=== PATIENT | male | born 1985 | race Caucasian/White ===

== ENCOUNTER 2023-02-11 16:14 | Emergency (ER) | payer BC, MEDICAID, SELFPAY ==
[2023-02-11 16:22] VITALS: BP 161/102; PULSE 84; RESP 16; TEMP 36.6; O2SAT 99; BMI 35.7
--- NOTE | 2023-02-11 16:59 | W.ED.CHESTPA ---
Documented by User: Dakota Cruz DO 02/13/23 07:54 HPI - Chest Pain General: Chief Complaint: Chest Pain Stated Complaint: chest pain Time Seen by Provider: 02/11/23 16:59 Source: patient Mode of arrival: ambulatory History of Present Illness: MD complaint: chest discomfort Onset (ago): hour(s) Timing of current episode: episodic Prior episodes: Yes Onset: during rest Pain location: substernal Pain radiation: left arm and neck Severity: mild Quality: tightness and aching Relieving factors: nothing Exacerbating factors: nothing Associated symptoms: Deny abdominal pain, diaphoresis, dyspnea, fever(s), leg edema, nausea, palpitations, sense of impending doom, syncope or vomiting Treatment prior to arrival: none Review of Systems Const: Denies: fever(s), chills, fatigue, malaise or diaphoresis ENMT: Denies: throat pain, ear or mastoid pain, nasal discharge or nasal congestion Card: Reports: chest pain; Denies: palpitations or syncope Resp: Denies: dyspnea, productive cough or non-productive cough GI: Denies: abdominal pain, nausea or vomiting : Denies: flank pain, dysuria, urinary frequency or urinary urgency Skin/Breast: Denies: rash or pruritus PFSH ED PFSH: Social History Smoking and tobacco status: never smoked Physical Exam Const: GENERAL APPEARANCE: cooperative and comfortable ORIENTATION/CONSCIOUSNESS: Yes awake, Yes oriented to person, Yes oriented to place and Yes oriented to time HENMT: COMMON NORMALS: normocephalic, atraumatic and hearing grossly normal bilaterally HEAD & SCALP: normocephalic and atraumatic Resp: COMMON NORMALS: normal respiratory effort, No retractions, No use of accessory muscles and clear to auscultation bilaterally AUSCULTATION: clear to auscultation bilaterally Cardio: COMMON NORMALS: regular rate, regular rhythm and No murmurs present (Cardio) RATE: regular rate RHYTHM: regular rhythm GI: COMMON NORMALS: Soft to palpation and No hepatosplenomegaly present AUSCULTATION: Yes normoactive bowel sounds PALPATION: Yes Soft to palpation, No Tenderness to palpation present (GI), No Guarding due to palpation present (GI) and Yes No hepatosplenomegaly present Extremity: COMMON NORMALS: normal to inspection, capillary refill normal, no clubbing, cyanosis or edema, no calf tenderness and no pedal edema Neuro: SENSORIUM/ORIENTATION: Yes oriented to person, Yes oriented to place and Yes oriented to time Skin: COMMON NORMALS: no rashes or lesions noted GENERAL SKIN EXAM: no rashes or lesions noted Course Vital Signs: Vital signs: Vital Signs Temperature 97.9 F 02/11/23 16:22 Pulse Rate 75 02/11/23 18:30 Respiratory Rate 16 02/11/23 16:22 Blood Pressure 149/83 02/11/23 18:30 Pulse Oximetry 97 02/11/23 18:30 Oxygen Delivery Me thod Room Air 02/11/23 18:30 MDM - Chest Pain Medical Decision Making Care signed out to Dr. Escobar at change of shift. See final notes for diagnosis and disposition. 38-year-old male checked out to me by Dr. Cruz at shift change. This gentleman presented with chest discomfort. He was initially significantly hypertensive, but this has improved. CBC is normal. BMP is normal. Chest x-ray is negative. First troponin is 6. Delta is 0. EKG is not remarkable. He will be allowed home. Lab Data 02/11/23 16:52 02/11/23 16:52 Radiology Impressions Chest X-Ray 02/11/23 17:04 IMPRESSION: No acute findings. Laboratory Results WBC 7.7 10^3/uL (4.0-10.0) 02/11/23 16:52 RBC 5.25 10^6/uL (4.1-5.3) 02/11/23 16:52 Hgb 15.5 g/dL (11.7-16.6) 02/11/23 16:52 Hct 45.4 % (42.0-52.0) 02/11/23 16:52 MCV 86.5 fl (80-94) 02/11/23 16:52 MCH 29.5 pg (28.0-34.0) 02/11/23 16:52 MCHC 34.1 g/dL (30.0-36.0) 02/11/23 16:52 RDW 13.2 % (12.1-15.1) 02/11/23 16:52 Plt Count 264 10^3/cmm (130-400) 02/11/23 16:52 MPV 9.4 fL (7.4-10.4) 02/11/23 16:52 Neut % (Auto) 51.5 % 02/11/23 16:52 Lymph % (Auto) 36.8 % 02/11/23 16:52 Foard % (Auto) 8.3 % 02/11/23 16:52 Eos % (Auto) 2.3 % 02/11/23 16:52 Baso % (Auto) 0.6 % 02/11/23 16:52 Neut # (Auto) 3.97 10^3/uL (1.8-7.7) 02/11/23 16:52 Lymph # (Auto) 2.8 10^3/uL (0.8-4.8) 02/11/23 16:52 Foard # (Auto) 0.6 10^3/uL (0.2-0.9) 02/11/23 16:52 Eos # (Auto) 0.2 10^3/uL (0.0-0.8) 02/11/23 16:52 Baso # (Auto) 0.1 10^3/uL (0.0-0.1) 02/11/23 16:52 Nucleated RBC % (auto) 0 % 02/11/23 16:52 Nucleated RBCs # 0.0 /100WBC 02/11/23 16:52 Sodium 140 mmol/L (136-145) 02/11/23 16:52 Potassium 4.2 mmol/L (3.5-5.1) 02/11/23 16:52 Chloride 103 mmol/L (98-107) 02/11/23 16:52 Carbon Dioxide 26 mmol/L (22-29) 02/11/23 16:52 Anion Gap 15.2 (5-19) 02/11/23 16:52 BUN 14 mg/dL (6-20) 02/11/23 16:52 Creatinine 1.1 mg/dL (0.7-1.2) 02/11/23 16:52 GFR Calculation 74.9 mL/min (90-130) L 02/11/23 16:52 Glucose 105 mg/dL (65-115) 02/11/23 16:52 Calculated Osmolality 291 mOsm/kg (285-295) 02/11/23 16:52 Calcium 9.5 mg/dL (8.5-10.5) 02/11/23 16:52 Total Bilirubin 0.3 mg/dL (0.15-1.2) 02/11/23 16:52 AST 34 U/L (0-40) 02/11/23 16:52 ALT 85 U/L (0-41) H 02/11/23 16:52 Alkaline Phosphatase 101 U/L (40-130) 02/11/23 16:52 Troponin T Baseline 6 ng/L (0-15) 02/11/23 16:52 Troponin T 120 Minute 6.00 ng/L (0-15) 02/11/23 18:45 Delta Troponin T 0 ABS# (0-10) 02/11/23 18:45 Total Protein 7.1 g/dL (6.6-8.7) 02/11/23 16:52 Albumin 4.8 g/dL (3.5-5.2) 02/11/23 16:52 Globulin 2.3 g/dL (1.3-4.6) 02/11/23 16:52 Acetaminophen 6.7 ug/mL (10-30) L 02/11/23 16:52 Discharge Plan Discharge Patient Disposition: Home Clinical Impression: Chest pain, Atypical chest pain, Radiculitis of left cervical region Condition: Stable Prescriptions: New Medrol (Tarik) 4 mg tablets,dose pack See Rx Instructions .ROUTE .COMPLEX Qty: 21 0RF Rx Instructions: orally per package directions No Action cyclobenzaprine 10 mg tablet 10 mg PO TID PRN (Reason: Muscle Pain) lisinopril 20 mg tablet 20 mg PO DAILY acetaminophen 500 mg Tablet 500 - 1,000 mg PO Q6H PRN (Reason: Pain) Discharge Orders: Discharge ED (Routine); Ordered 02/11/23 Ordered By: Micky Escobar Referrals: Cesar Reagan DO [Primary Care Provider] - 1-3 days Patient Instructions: Chest Pain (ED), Cervical Radiculopathy (ED) Activity Restrictions/Additional Instructions: Medication as directed. Return for worsening chest discomfort despite treatment, shortness of breath, other concerning symptoms. Follow-up with your doctor Coding Level of Care Code ED Aquaculture Farm Manager for Chg Fwd Documented by User: Micky Escobar DO 02/11/23 23:25 HPI - Chest Pain General: Chief Complaint: Chest Pain Stated Complaint: chest pain Time Seen by Provider: 02/11/23 16:59 History of Present Illness: 38-year-old male previously seen by Dr. Seals. He presents with chest discomfort, left shoulder and arm discomfort with some paresthesias. It radiates to his posterior neck he has had this pain on and off for a couple of days, but the pain coming into his chest today and being so severe as what was concerning to him. PFSH ED PFSH: Social History Smoking and tobacco status: never smoked Course Vital Signs: Vital signs: Vital Signs Temperature 97.9 F 02/11/23 16:22 Pulse Rate 75 02/11/23 18:30 Respiratory Rate 16 02/11/23 16:22 Blood Pressure 149/83 02/11/23 18:30 Pulse Oximetry 97 02/11/23 18:30 Oxygen Delivery Me thod Room Air 02/11/23 18:30 MDM - Chest Pain Medical Decision Making 38-year-old male checked out to me by Dr. Cruz at shift change. This gentleman presented with chest discomfort. He was initially significantly hypertensive, but this has improved. CBC is normal. BMP is normal. Chest x-ray is negative. First troponin is 6. Delta is 0. EKG is not remarkable. He will be allowed home. Lab Data 02/11/23 16:52 02/11/23 16:52 Radiology Impressions Chest X-Ray 02/11/23 17:04 IMPRESSION: No acute findings. Laboratory Results WBC 7.7 10^3/uL (4.0-10.0) 02/11/23 16:52 RBC 5.25 10^6/uL (4.1-5.3) 02/11/23 16:52 Hgb 15.5 g/dL (11.7-16.6) 02/11/23 16:52 Hct 45.4 % (42.0-52.0) 02/11/23 16:52 MCV 86.5 fl (80-94) 02/11/23 16:52 MCH 29.5 pg (28.0-34.0) 02/11/23 16:52 MCHC 34.1 g/dL (30.0-36.0) 02/11/23 16:52 RDW 13.2 % (12.1-15.1) 02/11/23 16:52 Plt Count 264 10^3/cmm (130-400) 02/11/23 16:52 MPV 9.4 fL (7.4-10.4) 02/11/23 16:52 Neut % (Auto) 51.5 % 02/11/23 16:52 Lymph % (Auto) 36.8 % 02/11/23 16:52 Foard % (Auto) 8.3 % 02/11/23 16:52 Eos % (Auto) 2.3 % 02/11/23 16:52 Baso % (Auto) 0.6 % 02/11/23 16:52 Neut # (Auto) 3.97 10^3/uL (1.8-7.7) 02/11/23 16:52 Lymph # (Auto) 2.8 10^3/uL (0.8-4.8) 02/11/23 16:52 Foard # (Auto) 0.6 10^3/uL (0.2-0.9) 02/11/23 16:52 Eos # (Auto) 0.2 10^3/uL (0.0-0.8) 02/11/23 16:52 Baso # (Auto) 0.1 10^3/uL (0.0-0.1) 02/11/23 16:52 Nucleated RBC % (auto) 0 % 02/11/23 16:52 Nucleated RBCs # 0.0 /100WBC 02/11/23 16:52 Sodium 140 mmol/L (136-145) 02/11/23 16:52 Potassium 4.2 mmol/L (3.5-5.1) 02/11/23 16:52 Chloride 103 mmol/L (98-107) 02/11/23 16:52 Carbon Dioxide 26 mmol/L (22-29) 02/11/23 16:52 Anion Gap 15.2 (5-19) 02/11/23 16:52 BUN 14 mg/dL (6-20) 02/11/23 16:52 Creatinine 1.1 mg/dL (0.7-1.2) 02/11/23 16:52 GFR Calculation 74.9 mL/min (90-130) L 02/11/23 16:52 Glucose 105 mg/dL (65-115) 02/11/23 16:52 Calculated Osmolality 291 mOsm/kg (285-295) 02/11/23 16:52 Calcium 9.5 mg/dL (8.5-10.5) 02/11/23 16:52 Total Bilirubin 0.3 mg/dL (0.15-1.2) 02/11/23 16:52 AST 34 U/L (0-40) 02/11/23 16:52 ALT 85 U/L (0-41) H 02/11/23 16:52 Alkaline Phosphatase 101 U/L (40-130) 02/11/23 16:52 Troponin T Baseline 6 ng/L (0-15) 02/11/23 16:52 Troponin T 120 Minute 6.00 ng/L (0-15) 02/11/23 18:45 Delta Troponin T 0 ABS# (0-10) 02/11/23 18:45 Total Protein 7.1 g/dL (6.6-8.7) 02/11/23 16:52 Albumin 4.8 g/dL (3.5-5.2) 02/11/23 16:52 Globulin 2.3 g/dL (1.3-4.6) 02/11/23 16:52 Acetaminophen 6.7 ug/mL (10-30) L 02/11/23 16:52 Discharge Plan Discharge Patient Disposition: Home Clinical Impression: Chest pain, Atypical chest pain, Radiculitis of left cervical region Condition: Stable Prescriptions: New Medrol (Tarik) 4 mg tablets,dose pack See Rx Instructions .ROUTE .COMPLEX Qty: 21 0RF Rx Instructions: orally per package directions No Action cyclobenzaprine 10 mg tablet 10 mg PO TID PRN (Reason: Muscle Pain) lisinopril 20 mg tablet 20 mg PO DAILY acetaminophen 500 mg Tablet 500 - 1,000 mg PO Q6H PRN (Reason: Pain) Discharge Orders: Discharge ED (Routine); Ordered 02/11/23 Ordered By: Micky Escobar Referrals: Cesar Reagan, [Primary Care Provider] - 1-3 days Patient Instructions: Chest Pain (ED), Cervical Radiculopathy (ED) Activity Restrictions/Additional Instructions: Medication as directed. Return for worsening chest discomfort despite treatment, shortness of breath, other concerning symptoms. Follow-up with your doctor Coding Level of Care Code ED Aquaculture Farm Manager for Shayla [place]
[2023-02-11 17:02] VITALS: BP 154/99; PULSE 93; O2SAT 97
--- NOTE | 2023-02-11 17:04 | XRR_ITS ---
PROCEDURE INFORMATION: Exam: XR Chest Exam date and time: 02/11/2023 5:09 PM Age: 38 years old Clinical indication: Pain; Chest pressure; Additional info: Dyspnea/cough TECHNIQUE: Imaging protocol: Radiologic exam of the chest. Views: 1 view. COMPARISON: CT chest jag w/*[id number] 07/26/2016 10:41 AM FINDINGS: Lungs: Unremarkable. No consolidation. Pleural spaces: Unremarkable. No pleural effusion. No pneumothorax. Heart/Mediastinum: Unremarkable. No cardiomegaly. Bones/joints: Unremarkable. XR/XR chest 1V portable [id number] IMPRESSION: No acute findings.
[2023-02-11 17:20] LABS: Basophils # 0.1 10^3/uL (0.0-0.1); Basophils % 0.6 %; Eosinophils # 0.2 10^3/uL (0.0-0.8); Eosinophils % 2.3 %; Hematocrit 45.4 % (42.0-52.0); Hemoglobin 15.5 g/dL (11.7-16.6); Lymphocytes # 2.8 10^3/uL (0.8-4.8); Lymphocytes % 36.8 %; Mean Corpuscular HGB Conc 34.1 g/dL (30.0-36.0); Mean Corpuscular Hemoglobin 29.5 pg (28.0-34.0); Mean Corpuscular Volume 86.5 fl (80-94); Mean Platelet Volume 9.4 fL (7.4-10.4); Monocytes # 0.6 10^3/uL (0.2-0.9); Monocytes % 8.3 %; Neutrophils # 3.97 10^3/uL (1.8-7.7); Neutrophils % 51.5 %; Nucleated Red Blood Cells % 0 %; Platelet Count 264 10^3/cmm (130-400); Red Blood Count 5.25 10^6/uL (4.1-5.3); Red Cell Distribution Width 13.2 % (12.1-15.1); White Blood Count 7.7 10^3/uL (4.0-10.0)
--- NOTE | 2023-02-11 17:22 | ECG_ITS ---
[facility] Test Date: 2023-02-11 Pat Name: Naldo Catalan Department: Room: Gender: Male Clinical Statistical Programmer: : 1985 Requested By: Dakota Marrero Order Number: [id number] Iman MD: Marbella Delicd M.D. Measurements Intervals [place] Rate: 78 P: 41 UT: 140 QRS: 59 QRSD: 88 T: 41 QT: 349 QTc: 399 Interpretive Statements SINUS RHYTHM NONSPECIFIC T-WAVE ABNORMALITY No previous ECG available for comparison Electronically Signed On 02-11-2023 18:12:47 CDT by Marbella Delcid M.D. [id number]
[2023-02-11 17:30] VITALS: BP 134/81; PULSE 78; O2SAT 94
[2023-02-11 17:31] LABS: Troponin(5th) Baseline 6 ng/L (0-15)
[2023-02-11 17:32] LABS: Acetaminophen 6.7 ug/mL (10-30); Alanine Aminotransferase 85 U/L (0-41); Albumin Level 4.8 g/dL (3.5-5.2); Alkaline Phosphatase 101 U/L (40-130); Anion Gap 15.2 (5-19); Aspartate Amino Transferase 34 U/L (0-40); Blood Urea Nitrogen 14 mg/dL (6-20); Calcium 9.5 mg/dL (8.5-10.5); Carbon Dioxide 26 mmol/L (22-29); Chloride 103 mmol/L (98-107); Globulin 2.3 g/dL (1.3-4.6); Glomerular Filtration Rate 74.9 mL/min (90-130); Glucose 105 mg/dL (65-115); Osmolality Calculated 291 mOsm/kg (285-295); Potassium 4.2 mmol/L (3.5-5.1); Sodium 140 mmol/L (136-145); Total Bilirubin 0.3 mg/dL (0.15-1.2); Total Protein 7.1 g/dL (6.6-8.7)
[2023-02-11] MEDS: aspirin 81 mg Chew Tablet 324 MG PO (17:39)
[2023-02-11] MEDS: lidocaine 2% viscous 15 ML, aluminum-mag hydrox-simethicon 30 ML, sucralfate oral liq 1 GM PO (17:40)
[2023-02-11 18:00] VITALS: BP 121/67; PULSE 68; O2SAT 99
[2023-02-11 18:30] VITALS: BP 149/83; PULSE 75; O2SAT 97
[2023-02-11 19:14] LABS: Troponin 5 2HR Delta 0 ABS# (0-10)
--- NOTE | 2023-02-11 19:26 | ECG_ITS ---
[facility] Test Date: 2023-02-11 Pat Name: Naldo Catalan Department: Room: Gender: Male Rn Occupational: : 1985 Requested By: Dakota Marrero Order Number: [id number] Iman MD: Vadim Hilario M.D. Measurements Intervals [place] Rate: 70 P: 58 SD: 162 QRS: 67 QRSD: 86 T: 86 QT: 359 QTc: 388 Interpretive Statements SINUS RHYTHM WITH SINUS ARRHYTHMIA NONSPECIFIC T-WAVE ABNORMALITY Compared to ECG 02/11/2023 17:22:46 No significant changes Electronically Signed On 02-11-2023 21:12:52 CDT by Vadim Hilario M.D. [id number]
== END 2023-02-11 19:40 | disposition home or self-care (01) ==
PROVIDERS: Family Medicine; Emergency Provider Emergency Medicine; PCP Electrodiagnostic Medicine
DX: R07.89 Other chest pain (principal); I10 Essential (primary) hypertension; M54.12 Radiculopathy, cervical region
CPT/HCPCS: 71045; 80053; 80307; 84484; 85025; 93005; 99285

== ENCOUNTER 2023-05-16 20:00 | Outpatient (CLI) | payer BC, MEDICAID, SELFPAY | END 2023-05-16 20:01 | disposition home or self-care (01) | LOC: SLEEP 05-17 03:44 | PROVIDERS: PCP Electrodiagnostic Medicine; Visit Provider Electrodiagnostic Medicine | DX: G47.10 Hypersomnia, unspecified (principal); G47.33 Obstructive sleep apnea (adult) (pediatric) | CPT/HCPCS: 95810 ==

== ENCOUNTER 2025-04-26 19:48 | Emergency (ER) | payer SELFPAY ==
--- OUTSIDE RECORDS SUMMARY | 2012-10-23 15:28 | XMS_ITS | Continuity of Care Document ---
Author Organization [facility] Address [address] [place] [address] Care Team Providers Care Aviation Support Equipment Repairer Name Role Phone Byron Bradley MD Unavailable Unavailable Allergies, Adverse Reactions, Alerts Substance Reaction Status Criticality No Known allergies Medications Medication Instructions Dosage Effective Dates (start - stop) Status Comments lisinopril 2.5 mg Tab take 1 tablet (2.5MG) by oral route every day 2.5 MG - Active lisinopril 2.5 mg Tab take 1 tablet (2.5MG) by oral route every day 2.5 MG - No Longer Active Procedures Procedure Date Offic/Outpt E&M Estab Low-Mod 15Min Systolic BP 140 Or Above Mm Hg 12 Diastolic BP Between 80-89 Mm Hg 2011 Offic/Outpt E&M Estab Low-Mod 15Min Offic/Outpt E&M New Low-Mod 20Min Advance Directives Directive Yes / No Effective Date File Name No Information Encounters Encounter Description Practice Location Reason(s) For Visit Diagnoses Date Provider Providers Copied on Encounter [facility], [address], [place], [place], [id number], [place] [address] [place] No Information 3 Mirna Matthews. [address] [place] [address], [place], [place], [id number] , [place]. tel:[phone] [facility], [address], [place], [place], [id number], [place] [address] [place] No Information 2 Mirna Matthews. [address], [place], [id number] , . tel: [phone] Offic/Outpt E&M Estab Low-Mod 15Min [facility], [address], [place], [place], [id number], [place] [address] [place] hypertension (chief complaint) Hypertension, Benign 2 Mirna Matthews. [address], [place], [id number] , [place]. tel: [phone] Offic/Outpt E&M Estab Low-Mod 15Min [facility], [address], [place], [place], [id number], [place] [address] [place] follow up on lab test(s) (chief complaint)BP check (chief complaint) Routine Medical ExamHTN (hypertension ), benignChest Pain, Unspecified 2 [facility]. [address] [place] [address], [id number] , . tel: [phone] Offic/Outpt E&M [facility] Low-Mod 20Min [facility], [address], [place], [place], [id number], [place] [address] [place] follow up from ER (chief complaint)ches t pain (chief complaint) Chest painElevated BP 2 Arthurmere Matthews. [address] [place] [address], [id number] , [place]. tel: [phone] Family History Family Member Type Diagnosis Age At Onset Father Problem (finding) Diabetes mellitus Mother Problem (finding) hypertension Father Problem (finding) hypertension Payers Payer name Insurance type Covered green party ID Cecilioangy leandramichael(s) Jesústna HMO Commercial CI [id number] Social History Type Description Quantity Date Captured Comments Sex Male Smoking Status No Information Chief Complaint And Reason For Visit No Information Reason For Referral Reason For Referral No Information History Of Present Illness Encounter Date Complaint History Of Prese nt Illness No Information Functional Status Date Functional Assessmen t No Information Instructions Date Instruction Additional Infor mation No Information Assessments Type Assessment Date No Information Patient Care Teams Name Effective Dates (start - stop) Status Members No Information
[2025-04-26 19:50] VITALS: BP 159/105; PULSE 94; RESP 16; TEMP 36.7; O2SAT 98; BMI 32.4
--- OUTSIDE RECORDS SUMMARY | 2025-04-26 19:55 | XMS_ITS | Patient Health Record ---
Author Organization [facility] Address [address] [place] [address] Support Name Relationship Address Phone Naldo Vargas Guarantor Unknown Reason For Referral No Information Medications Medication SIG (Take, Route, Frequency, Duration) Notes Start Date End Date Status hydroCHLOROthiazide 25 MG Tablet as directed Orally Active Gabapentin 300 MG Capsule 1 capsule Orally TID Active Social History Social History Drugs/Alcohol: Social Info Question Answer Notes Alcohol Screen (Audit-C) Did you have a drink containing alcohol in the past year? Yes How often did you have a drink containing alcohol in the past year? Monthly or less (1 point) Points 1 Interpretation Negative Drugs Have you used drugs other than those for medical reasons in the past 12 months? No Plan Of Treatment Pending Test Test Name Order Date MRI Cervical Spine w/o [id number] 2019 MRI Lumbar Spine w/o Cont-[id number] 09/11/19 20 Insurance Providers Payer Name Payer Address Payer Phone Subscriber Number Group Number Insured Name Patient Relationship to Insured Coverage Start Date Coverage End Date anchor.travel [address] [address] [place] [address] [id number] Naldo [place] Self - patient is the insured Medical (General) History Medical History History ICD Code Chicken Pox Pneumonia High blood pressure Surgical History Surgery Date(Month/Year) ACL Right knee Right Knee
--- OUTSIDE RECORDS SUMMARY | 2025-04-26 19:55 | XMS_ITS | Patient Health Record ---
Author Organization [facility] Address [address] [place] [address] Care Team Providers Care Income Tax Preparer Name Role Phone summerJulio César Reddy Unavailable [phone] [facility] Unavailable Unavailable Allergies Allergen (clinical drug ingredient) Drug/Non Drug Allergy documented on EMR Reaction Allergy Type Onset Date Status Shellfish Shellfish (uncoded) Unknown Allergy Active Reason For Referral No Information Medications Medication SIG (Take, Route, Fr equency, Duration) Notes Start Date End Date Status ibuprofen 800 mg 1 tab(s) orally 3 times a day Active Social History Tobacco Use: Social History Observation Description Date Details (start date - stop date) Never Smoker NA - NA Tobacco Use Question Answer Notes The patient never smoked Problems Problem Type SNOMED Code ICD Code Onset Dates Problem Status W/U Status Risk Notes Problem 48130020 Contusion of left knee, initial encounter (S80.02XA) Active confirmed Problem 854481114 Contusion of bone (T14.8) Active confirmed Left knee Plan Of Treatment No Information Insurance Providers Payer Name Payer Address Payer Phone Subscriber Number Group Number Insured Name Patient Relationship to Insured Coverage Start Date Coverage End Date [employer] WC [address] [place] [address] [phone] [id number] Danuta [employer], Employee 6 Medical (General) History Surgical History Surgery Date(Month/Year) Right ACL Reconstruction
--- NOTE | 2025-04-26 20:12 | CTR_ITS ---
PROCEDURE INFORMATION: Exam: CT Pelvis With Contrast Exam date and time: 04/26/2025 8:38 PM Age: 40 years old Clinical indication: Mass, lump, or swelling; Other: RT groin/scrotum; Other: RT groin abscess; Patient C/O continued pain and redness to RT groin and scrotum after lancing of groin abscess three days ago. ; Additional info: R groin abscess, cellulitis TECHNIQUE: Imaging protocol: Computed tomography of the pelvis with contrast. Radiation optimization: All CT scans at this facility use at least one of these dose optimization techniques: automated exposure control; mA and/or kV adjustment per patient size (includes targeted exams where dose is matched to clinical indication); or iterative reconstruction. Contrast material: OMNI 350; Contrast volume: 100 ml; Contrast route: INTRAVENOUS (IV); COMPARISON: No relevant prior studies available. RADIATION DOSE METRICS: Total DLP (mGy-cm): 822.79 FINDINGS: Intestine: Visualized small and large intestine are unremarkable. Appendix: No evidence of appendicitis. Intraperitoneal space: Unremarkable. No free air. No significant fluid collection. Lymph nodes: Unremarkable. No enlarged lymph nodes. Reproductive: Normal as visualized. Urinary bladder: Normal. No mass. Bones/joints: Unremarkable. No acute fracture. No dislocation. Soft tissues: Residual abscess within the right inguinal crease measuring 12 x 11 x 11 mm. Minimal quantity of internal fluid with a single foci of gas. CT/CT pelvis w con* [id number] IMPRESSION: Residual abscess within the right inguinal crease measuring 12 x 11 x 11 mm. Minimal quantity of internal fluid with a single foci of gas. Minimal inflammation of the subcutaneous fat adjacent to the abscess. No findings of significant cellulitis. No findings of Iker's gangrene.
--- NOTE | 2025-04-26 20:14 | W.ED.SKABFB ---
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 He was initially seen at [facility] in [place] where the provider diagnosed a cellulitis cyst and performed incision and drainage with packing placement. Patient removed the packing 24 hours later as instructed, reporting severe pain during removal. Despite the procedure, the patient reports persistent pain with minimal drainage. The area remains tender and solid with white, 'gunky' material visible at the incision site with malodorous discharge. The patient was seen by Dr. Reagan yesterday who attempted to arrange a urology consultation. Concurrently, the patient reports new onset hyperglycemia with glucose readings of 550 mg/dL one hour ago and 303 mg/dL approximately 25 minutes ago despite not having eaten since 2 PM. He denies a previous diagnosis of diabetes but mentions a borderline A1c of 5.6% approximately 18 months ago. Associated symptoms include polydipsia, polyuria (urinating every 2 hours versus his baseline of 3 times daily), cotton mouth, splitting headache, fatigue with excessive sleeping, and hot/cold flashes. The patient reports these urinary symptoms began about a week before the abscess appeared. He has been taking an oral antibiotic for 4 days as prescribed. Related Data Home Medications ?Medication ?Instructions ?Recorded ?Confirmed acetaminophen 500 mg tablet 500 - 1,000 mg PO Q6H PRN Pain 02/11/23 02/11/23 cyclobenzaprine 10 mg tablet 10 mg PO TID PRN Muscle Pain 02/11/23 02/11/23 lisinopril 20 mg tablet 20 mg PO DAILY 02/11/23 02/11/23 Previous Rx's ?Medication ?Instructions ?Recorded methylprednisolone 4 mg tablets in See Rx Instructions PO .COMPLEX 02/11/23 a dose pack (Medrol (Tarik)) #21 ea clindamycin HCl 300 mg capsule 300 mg PO Q6H 10 days #40 caps 04/26/25 (Cleocin HCl) glipizide 5 mg tablet 5 mg PO BID #60 tabs 04/26/25 hydrocodone 5 mg-acetaminophen 325 1 tab PO Q8H PRN pain #7 tabs 04/26/25 mg tablet metformin 500 mg tablet 500 mg PO BID #60 tabs 04/26/25 Allergies Allergy/AdvReac Type Severity Reaction Status Date / Time No Known Allergies Allergy Verified 02/23/20 15:57 PFSH ED PFSH: Social History Smoking and tobacco/nicotine status: never used tobacco/nicotine Physical Exam Const: GENERAL APPEARANCE: cooperative; not frail appearing HENMT: COMMON NORMALS: normocephalic, atraumatic and Normal external nose present HEAD & SCALP: normocephalic and atraumatic FACE & SINUS: normal facial exam and face symmetric NOSE: Normal external nose present Eye: COMMON NORMALS: Equal, round and reactive pupils present and EOMs intact bilaterally PUPIL: Yes Equal, round and reactive pupils present Neck/C-Spine: GENERAL: Yes trachea midline Chest: CHEST: Yes Symmetrical chest wall rise Resp: COMMON NORMALS: normal respiratory effort, No retractions, No use of accessory muscles and clear to auscultation bilaterally AUSCULTATION: clear to auscultation bilaterally Cardio: COMMON NORMALS: regular rate and regular rhythm RATE: regular rate RHYTHM: regular rhythm GI: COMMON NORMALS: Normal to inspection, nondistended, normoactive bowel sounds present : PENIS: normal penis SCROTUM: Yes testes descended bilaterally TESTES: No testicular swelling and No testicular mass Extremity: COMMON NORMALS: no pedal edema Neuro: FAROOQ COMA SCALE: document GCS findings [place] coma scale eye opening: Spontaneous [place] coma scale verbal response: Orientated [place] coma scale motor response: Obey commands [place] coma scale total score: 15 SENSORY EXAM: Yes extremities (intact) Psych: COMMON NORMALS: speech normal SPEECH: Yes normal speech Skin: NARRATIVE SKIN EXAM: Small incision right adductor region of the hip with minimal serous drainage. Surrounding mild cellulitic change with induration. Area of induration is around 2 inches Course Vital Signs: Vital signs: Vital Signs Temperature 98.1 F 04/26/25 19:50 Pulse Rate 89 04/27/25 00:23 Respiratory Rate 16 04/26/25 19:50 Blood Pressure 122/71 04/27/25 00:23 Pulse Oximetry 98 04/27/25 00:23 Oxygen Delivery Me thod Room Air 04/26/25 19:50 MDM - Skin/Abscess/Foreign Bdy Medicial Decision Making Blood sugar is down from 5424-0304. This is after fluid and insulin. Ketones are negative, bicarb is 24. No evidence of ketoacidosis. CBC and BMP are otherwise not remarkable. CT reveals minimal residual abscess with 12 x 11 x 11 mm fluid collection. Minimal inflammation. No signs of expanding infection. At this size, with draining abscess, no reason to reopen. Patient is given IV clindamycin. He will stop his Bactrim, and start the clindamycin tomorrow. This will give anaerobic and staph coverage. As for his blood sugar, he will have to hold off on metformin, as he had CT contrast. Will start that in 48 hours. Most start glipizide tomorrow twice daily, and check his blood sugars often. He is to follow-up with his primary doctor next week. His A1c is pending at this point. Lab Data 04/26/25 20:25 04/26/25 20:[address] 04/26/25 20:12 IMPRESSION: Residual abscess within the right inguinal crease measuring 12 x 11 x 11 mm. Minimal quantity of internal fluid with a single foci of gas. Minimal inflammation of the subcutaneous fat adjacent to the abscess. No findings of significant cellulitis. No findings of Iker's gangrene. Laboratory Results WBC 9.66 10^3/uL (3.29-11.43) 04/26/25 20: RBC 5.69 10^6/uL (3.85-5.65) H 04/26/25 20:25 Hgb 16.70 g/dL (11.27-16.99) 04/26/25 20: Hct 46.5 % (37-53) 04/26/25 20:25 MCV 81.7 fl (82-101) L 04/26/25 20: MCH 29.3 pg (27-33) 04/26/25 20: MCHC 35.9 g/dL (30-55) 04/26/25 20: RDW 12.1 % (12.1-15.1) 04/26/25 20:25 Plt Count 292 10^3/cmm (157-399) 04/26/25 20: MPV 10.1 fL (7.4-10.4) 04/26/25 20:25 Neut % (Auto) 51.1 % 04/26/25 20:25 Lymph % (Auto) 34.2 % 04/26/25 20:25 [place] % (Auto) 7.6 % 04/26/25 20:25 Eos % (Auto) 5.9 % 04/26/25 20:25 Baso % (Auto) 0.8 % 04/26/25 20:25 Neut # (Auto) 4.94 10^3/uL (1.8-7.7) 04/26/25 20:25 Lymph # (Auto) 3.3 10^3/uL (0.8-4.8) 04/26/25 20:25 [place] # (Auto) 0.7 10^3/uL (0.2-0.9) 04/26/25 20:25 Eos # (Auto) 0.6 10^3/uL (0.0-0.8) 04/26/25 20:25 Baso # (Auto) 0.1 10^3/uL (0.0-0.1) 04/26/25 20:25 Nucleated RBC % (auto) 0 % 04/26/25 20: Nucleated RBCs # 0.0 /100WBC 04/26/25 20:25 Sodium 131 mmol/L (136-145) L 04/26/25 20: Potassium 4.4 mmol/L (3.5-5.1) 04/26/25 20:25 Chloride 90 mmol/L (98-107) L 04/26/25: Carbon Dioxide 24 mmol/L (22-29) 04/26/25 20: Anion Gap 21.4 (5-19) H 04/26/25 20:25 BUN 15 mg/dL (6-20) 04/26/25 20:25 Creatinine 1.2 mg/dL (0.7-1.2) 04/26/25 20:25 GFR Calculation 67.1 mL/min (90-130) L 04/26/25 20:25 Glucose 493 mg/dL (65-115) H 04/26/25 20:25 POC Glucose 327 mg/dL (70-110) H 04/26/25 23:19 Estimat Average Glucose 315 04/26/25 20:25 Hemoglobin A1c 12.6 % (4.0-6.0) H 04/26/25 20:25 Calculated Osmolality 295 mOsm/kg (285-295) 04/26/25 20:25 Lactic Acid 1.5 mmol/L (0.5-2.2) 04/26/25 20:25 Calcium 9.9 mg/dL (8.5-10.5) 04/26/25 20:25 Total Bilirubin 0.5 mg/dL (0.15-1.2) 04/26/25 20:25 AST 30 U/L (0-40) 04/26/25 20:25 ALT 62 U/L (0-41) H 04/26/25 20:25 Alkaline Phosphatase 151 U/L (40-130) H 04/26/25 20:25 C-Reactive Protein 11.4 mg/L (0.0-4.9) H 04/26/25 20:25 Total Protein 8.1 g/dL (6.6-8.7) 04/26/25 20: Albumin 4.9 g/dL (3.5-5.2) 04/26/25 20:25 Globulin 3.2 g/dL (1.3-4.6) 04/26/25 20:25 Urine Color Yellow (Yellow) 04/26/25 20: Urine Appearance Clear (CLEAR) 04/26/25 20:20 Urine pH 6.0 (5-7) 04/26/25 20:20 Ur Specific [place] 1.035 (1.005-1.030) H 04/26/25 20:20 Urine Protein Negative (Negative) 04/26/25 20:20 Urine Glucose (UA) 3+ (Normal) H 04/26/25 20:20 Urine Ketones Trace (Negative) 04/26/25 20:20 Urine Blood Negative (Negative) 04/26/25 20:20 Urine Nitrate Negative (Negative) 04/26/25 20:20 Urine Bilirubin Negative (Negative) 04/26/25 20: Urine Urobilinogen 0.2 mg/dL (Negative) 04/26/25 20:20 Ur Leukocyte Esterase Negative (Negative) 04/26/25 20:20 Urine RBC 0-2 /hpf (0-2) 04/26/25 20:20 Urine WBC 0-5 /hpf (0-5) 04/26/25 20:20 Ur Squamous Epith Cells 0-5 /hpf (0-5) 04/26/25 20:20 Amorphous Sediment Not Reportable 04/26/25 20:20 Urine Bacteria None seen /hpf (NONE) 04/26/25 20:20 Hyaline Casts 0-4 /lpf H 04/26/25 20:20 Serum Ketones Negative (Negative) 04/26/25 20:25 All radiology interpretation(s) finalized by discharge Discharge Plan Discharge Patient Disposition: Home Clinical Impression: Cellulitis Condition: Stable Prescriptions: New clindamycin HCl [Cleocin HCl] 300 mg capsule 300 mg PO Q6H 10 Days Qty: 40 0RF metformin 500 mg tablet 500 mg PO BID Qty: 60 0RF hydrocodone-acetaminophen 5-325 mg tablet 1 tab PO Q8H PRN (Reason: pain) Qty: 7 0RF glipizide 5 mg tablet 5 mg PO BID Qty: 60 0RF No Action cyclobenzaprine 10 mg tablet 10 mg PO TID PRN (Reason: Muscle Pain) lisinopril 20 mg tablet 20 mg PO DAILY acetaminophen 500 mg Tablet 500 - 1,000 mg PO Q6H PRN (Reason: Pain) Medrol (Tarik) 4 mg tablets,dose pack See Rx Instructions .ROUTE .COMPLEX Qty: 21 0RF Rx Instructions: orally per package directions Discharge Orders: Discharge ED (Routine); Ordered 04/26/25 Ordered By: Micky Escobar Referrals: Cesar Reagan DO [Primary Care Provider, Family Practice] Patient Instructions: Cellulitis (ED), Opioid Safety, Pain Management, Patient Portal & Mike Instructions Activity Restrictions/Additional Instructions: Antibiotics as directed. Start your glipizide tomorrow. Take twice daily. Wait 48 hours before starting metformin, and take it twice daily. Check your blood sugar at least twice daily. Stop medication if blood sugars are going below 100 for now. Call your doctor Tuesday for a follow-up appointment regarding both your infection, and your blood sugar. Return for any problems in the meantime. Print Language: Armenian Coding Level of Care Code ED Area Safety Manager for Shayla Edmond
[2025-04-26 20:34] LABS: Glucose Urine UA 3+ (Normal); Nitrate Urine Negative (Negative)
[2025-04-26 20:36] LABS: Add Urine Microscopic? YES
[2025-04-26] MEDS: iohexol 350 mg/mL 500 mL Btl (per mL) IV (20:40)
[2025-04-26 20:49] LABS: Hematocrit 46.5 % (37-53); Hemoglobin 16.70 g/dL (11.27-16.99); Mean Corpuscular HGB Conc 35.9 g/dL (30-55); Mean Corpuscular Hemoglobin 29.3 pg (27-33); Mean Corpuscular Volume 81.7 fl (82-101); Nucleated Red Blood Cells % 0 %; Platelet Count 292 10^3/cmm (157-399); Red Blood Count 5.69 10^6/uL (3.85-5.65); White Blood Count 9.66 10^3/uL (3.29-11.43)
[2025-04-26 20:55] LABS: Specific Gravity, Urine 1.035 (1.005-1.030)
[2025-04-26 21:05] LABS: Ketone (Acetest) Serum Negative (Negative)
[2025-04-26 21:16] LABS: Lactic Sepsis W/Reflex 1.5 mmol/L (0.5-2.2)
[2025-04-26 21:17] LABS: Alanine Aminotransferase 62 U/L (0-41); Albumin Level 4.9 g/dL (3.5-5.2); Alkaline Phosphatase 151 U/L (40-130); Anion Gap 21.4 (5-19); Aspartate Amino Transferase 30 U/L (0-40); Blood Urea Nitrogen 15 mg/dL (6-20); Calcium 9.9 mg/dL (8.5-10.5); Carbon Dioxide 24 mmol/L (22-29); Chloride 90 mmol/L (98-107); Creatinine Clr Calc Pharmacy 107.1454; Globulin 3.2 g/dL (1.3-4.6); Glucose 493 mg/dL (65-115); Osmolality Calculated 295 mOsm/kg (285-295); Potassium 4.4 mmol/L (3.5-5.1); Sodium 131 mmol/L (136-145); Total Protein 8.1 g/dL (6.6-8.7)
[2025-04-26] MEDS: insulin regular-human 100 units/1 mL 13 UNIT IVP (21:56)
[2025-04-26 22:06] VITALS: BP 137/79; PULSE 89; O2SAT 95
[2025-04-27 00:23] VITALS: BP 122/71; PULSE 89; O2SAT 98
[2025-04-27 03:30] LABS: Estmated Average Glucose 315; Hemoglobin A1C 12.6 % (4.0-6.0)
== END 2025-04-27 01:01 | disposition home or self-care (01) ==
PROVIDERS: Emergency Provider Emergency Medicine; PCP Electrodiagnostic Medicine
DX: L03.314 Cellulitis of groin (principal)
CPT/HCPCS: 36415; 36416; 72193; 80053; 81001; 82009; 82962; 83036; 83605; 85025; 86140; 87040; 96361; 96365; 96375; 99285; J1815; J1885; J3490; J7030; J9999